=== PATIENT | female | born 1955 | race Caucasian/White ===

== ENCOUNTER 2016-11-03 16:38 | Emergency (ER) | payer MEDICARE ==
[2016-11-03 17:41] LABS: BASOPHILS 0.3 % (0.0-2.0); EOSINOPHILS 0.7 % (0.0-6.0); EOSINOPHILS# 0.1 X 10^3uL (0.0-0.4); HEMATOCRIT 39.8 % (36.0-48.0); HEMOGLOBIN 13.1 g/dL (12.0-16.0); LYMPHOCYTES 12.9 % (20.0-40.0); LYMPHOCYTES# 1.8 X 10^3uL (0.8-3.8); MEAN CELL VOLUME 87.8 fL (80.0-100.0); MEAN CORPUS. HGB CONCENTRATION 32.9 g/dL (32.0-36.0); MEAN CORPUSCULAR HEMOGLOBIN 28.9 pg (29.0-35.0); MONOCYTES 3.5 % (2.0-10.0); MONOCYTES# 0.5 X 10^3uL (0.2-1.0); NEUTROPHILS# 11.6 X 10^3uL (2.6-6.7); PLATELET COUNT 312 X 10^3uL (130-440); RED BLOOD COUNT 4.54 X 10^6uL (4.20-6.10); RED CELL DISTRIBUTION WIDTH 13.2 % (11.5-14.5)
[2016-11-03 17:53] LABS: BLOOD UREA NITROGEN 29 mg/dL (7-17); CALCIUM 9.4 mg/dL (8.4-10.2); CHLORIDE 103 mmol/L (98-107); EST GLOMERULAR FILTRATION RATE 44 mL/min; POTASSIUM 4.8 mmol/L (3.5-5.1); SODIUM 137 mmol/L (137-145)
[2016-11-03 18:01] LABS: NEUTROPHILS 82.6 % (54.0-75.0)
[2016-11-03 18:07] LABS: GLUCOSE 246 mg/dL (70-100); TROPONIN I < 0.012 ng/mL (0.00-0.034)
--- NOTE | 2016-11-03 19:04 | ER NURSING DOCUMENTATION ---
Nurse's Notes [facility] Name:Jeanette Ramirez Age:61 yrs Sex:Female :1955 Arrival Date:11/03/2016 Time:16:38 Bed4 Private MD: Diagnosis:Syncope;Dehydration Presentation: 11/03 16:44 Acuity: JAEL 2 rh 17:12 Presenting complaint: EMS states: up from [place], syncopal episodes x2 while sitting in sj chair so no injuries. Awake and alert now. Transition of care: patient was not received from another setting of care. Notified ED Physician of patient's arrival and CC Dr. Fitzpatrick notified. Care prior to arrival: IV Fluids given by EMS NS 500 ml. 17:12 Method Of Arrival: EMS: 420 sj Triage Assessment: 17:21 General: Appears in no apparent distress, Behavior is cooperative, pleasant. Pain: sj Denies pain. Neuro: No deficits noted. Level of Consciousness is awake, alert, Oriented to person, place, time, Cruise Guide are equal bilaterally Moves all extremities. Gait is unsteady, Speech is normal, Facial symmetry appears normal, Pupils are PERRLA, Reports paresthesias in bilateral feet, now better than usual Denies headache. Cardiovascular: Capillary refill < 3 seconds Heart tones S1 S2 Pulses are all present. Rhythm is regular. Respiratory: Airway is patent Respiratory effort is even, unlabored, Respiratory pattern is regular, symmetrical, Breath sounds are clear bilaterally. Denies shortness of breath. GI: No deficits noted. Bowel sounds present X 4 quads. Abd is soft and non tender X 4 quads. Musculoskeletal: Circulation, motion, and sensation intact Capillary refill < 3 seconds Range of motion intact in all extremities. Historical: - Allergies: No known drug Allergies; - Home Meds: 1. Insulin: Regular Sub-Q 2. Metformin Oral 3. Potassium Chloride Oral 4. Prozac Oral 5. Wellbutrin Oral 6. Aspirin Oral 7. glyburide Oral 8. gabapentin oral 9. hydrochlorothiazide Oral 10. CPAP - PMHx: Diabetes - IDDM; Hypertension; MULTIPLE SCLEROSIS; DEPRESSION; - Tetanus: < 10 years. - Ebola Screening: : Patient negative for fever greater than or equal to 101.5 degrees Fahrenheit, and additional compatible Ebola Virus Disease symptoms. Patient denies exposure to infectious person. Patient denies travel to an Ebola-affected area in the 21 days before illness onset. No symptoms or risks identified at this time. . - Immunization history: Pneumococcal vaccine is not up to date, Patient has never been vaccinated Flu Vaccine < 1 year. - Social history: Smoking status: Patient states was never smoker of tobacco. Patient uses alcohol occasionally. Patient/guardian denies using marijuana. Screenin:40 Infectious Disease Risk None. Abuse screen: Denies threats or abuse. Denies injuries sj from another. Nutritional screening: On diabetic diet. Assessment: 17:39 Neuro: No deficits noted. Cardiovascular: Rhythm is sinus bradycardia RBBB. sj Vital Signs: 16:47 BP 146 / 72; Pulse 95; Resp 22; Temp 97.8(O); Pulse Ox 89% on R/A; Weight 128.82 kg arc (R); Height 5 ft. 1 in. (154.94 cm) (R); Pain 0/10; 18:28 BP 177 / 75; Pulse 86; Resp 25; Pulse Ox 97% on 2 lpm NC; Pain 0/10; sj 19:02 BP 170 / 75; Pulse 80; Resp 18; Temp 98(O); Pulse Ox 94% on R/A; Pain 0/10; bw2 16:47 Body Mass Index 53.66 (128.82 kg, 154.94 cm) arc ED Course: 16:39 Patient arrived in ED. ama 16:44 Triage completed. rh 17:01 Vic Fitzpatrick MD is Attending Physician. tl1 17:05 Judy Thacker is Primary Nurse. sj 17:40 Valuables Given to family. Patient has correct armband on for positive identification. sj Bed in low position. Call light in reach. Side rails up X2. machinist job setter on. Pulse ox on. NIBP on. Warm blanket given. Administered Medications: 17:12 Drug: NS 0.9% 1000 ml; Route: IV; Rate: bolus; Site: left hand; sj 18:37 Follow up: IV Status: Completed infusion; IV Intake: 1000ml sj Point of Care Testing: Blood Glucose: 17:23 Blood Glucose: 225 mg/dL; Test Strip: Lot #: [id number]; Expiration: 03/19/2018; sj Ranges: Intake: 18:37 IV: 1000ml; Total: 1000ml. sj Outcome: 18:55 Discharge ordered by MD. tl1 19:02 Discharged to home ambulatory. bw2 19:02 Condition: good 19:02 Discharge Assessment: Patient awake, alert and oriented x 3. No cognitive and/or functional deficits noted. Patient verbalized understanding of disposition instructions. 19:02 Discharge instructions given to patient, Instructed on discharge instructions, Demonstrated understanding of instructions. 19:03 Patient left the ED. bw2 Signatures: Christophe Reyes, Reg Reg Vic Martinez MD MD tl1 Marisela Hunter, Reg Reg Jenifer Chow, Kassidy Merino bw2
--- NOTE | 2016-11-05 19:03 | ER PHYSICIAN DOCUMENTATION ---
Physician Documentation [facility] Name:Jeanette Ramirez Age:61 yrs Sex:Female :1955 Arrival Date:11/03/2016 Time:16:38 Bed4 Private MD: Vic Brown Disposition: 11/03 23:29 Chart complete. tl1 Disposition: 11/03/16 18:55 Discharged to Home/Self Care. Impression: Syncope, Dehydration. - Condition is Good. - Discharge Instructions: DEHYDRATION (4y-Adult), SYNCOPE, Vasovagal. - Medical Reconciliation form form. - Follow up: Private Physician; When: 7 - 10 days; Reason: Recheck today's complaints, Continuance of care. - Problem is new. - Symptoms have improved. HPI: 16:42 This 61 yrs old Female presents to ER via EMS with complaints of Syncope. tl1 17:00 The patient has experienced syncope, became unresponsive. Duration: This was a single tl1 episode, that lasted 60 second(s). Context: the episode(s) was witnessed, by a friend, occurred [facility] [address] [facility] at [address],000' in [facility], occurred while the patient was walking, Just prior to the episode the patient experienced lightheadedness. Associated injury: The patient did not suffer any apparent associated injury. Associated signs and symptoms: The patient has no apparent associated signs or symptoms. Historical: - Allergies: No known drug Allergies; - Home Meds: 1. Insulin: Regular Sub-Q 2. Metformin Oral 3. Potassium Chloride Oral 4. Prozac Oral 5. Wellbutrin Oral 6. Aspirin Oral 7. glyburide Oral 8. gabapentin oral 9. hydrochlorothiazide Oral 10. CPAP - PMHx: Diabetes - IDDM; Hypertension; MULTIPLE SCLEROSIS; DEPRESSION; - Tetanus: < 10 years. - Ebola Screening: : Patient negative for fever greater than or equal to 101.5 degrees Fahrenheit, and additional compatible Ebola Virus Disease symptoms. Patient denies exposure to infectious person. Patient denies travel to an Ebola-affected area in the 21 days before illness onset. No symptoms or risks identified at this time. . - Immunization history: Pneumococcal vaccine is not up to date, Patient has never been vaccinated Flu Vaccine < 1 year. - Social history: Smoking status: Patient states was never smoker of tobacco. Patient uses alcohol occasionally. Patient/guardian denies using marijuana. ROS: 17:00 Cardiovascular: Negative for chest pain, palpitations. tl1 17:00 Respiratory: Negative for cough, dyspnea on exertion, orthopnea, pleurisy, shortness of breath, sputum production, wheezing. 17:00 Abdomen/GI: Negative for abdominal pain, nausea, vomiting, diarrhea, abdominal cramps, abdominal distension. 17:00 : Negative for urinary symptoms. 17:00 Neuro: Negative for headache, seizure activity, speech changes, visual changes. 17:00 All other systems are negative. Exam: 17:00 Abdomen/GI: Exam negative for acute changes, Bowel sounds: normal, Palpation: abdomen tl1 is soft and non-tender. 17:00 Constitutional: This is a well developed, well nourished patient who is awake, alert, tl1 and in no acute distress. Head/Face: Normocephalic, atraumatic. Eyes: Pupils equal round and reactive to light, extra-ocular motions intact. Lids and lashes normal. Conjunctiva and sclera are non-icteric and not injected. Cornea within normal limits. Periorbital areas with no swelling, redness, or edema. Neck: Trachea midline, no thyromegaly or masses palpated, and no cervical lymphadenopathy. Supple, full range of motion without nuchal rigidity, or vertebral point tenderness. No Meningismus. 17:00 Chest/axilla: Normal chest wall appearance and motion. Nontender with no deformity. No lesions are appreciated. 17:00 Constitutional: The patient appears obese. 17:00 Cardiovascular: Rate: normal, Rhythm: regular, Heart sounds: normal, Edema: is not appreciated. 17:00 Respiratory: Respirations: normal, Breath sounds: are normal. 17:00 Neuro: Exam negative for acute changes, Orientation: is normal, Mentation: is normal, Memory: is normal, Cranial nerves: grossly normal, Motor: moves all fours. Vital Signs: 16:47 BP 146 / 72; Pulse 95; Resp 22; Temp 97.8(O); Pulse Ox 89% on R/A; Weight 128.82 kg arc (R); Height 5 ft. 1 in. (154.94 cm) (R); Pain 0/10; 18:28 BP 177 / 75; Pulse 86; Resp 25; Pulse Ox 97% on 2 lpm NC; Pain 0/10; sj 19:02 BP 170 / 75; Pulse 80; Resp 18; Temp 98(O); Pulse Ox 94% on R/A; Pain 0/10; bw2 16:47 Body Mass Index 53.66 (128.82 kg, 154.94 cm) arc MDM: 16:40 Patient medically screened. tl1 16:58 Response to treatment: the patient's symptoms have markedly improved after treatment, tl1 and as a result, I will discharge patient. ED course: This is probably multifactorial with dehydration and probable Vasovagal episode. She does have a bifascicular block and if she had a transient LPFB, could have had complete heart block and syncope based on that. She was hydrated, and felt much better at the time of d/c.. 17:00 Differential Diagnosis: cardiac arrhythmia, emotional response, idiopathic syncope, tl1 vasovagal episode, DEHYDRATION. Neurological re-evaluation: normal neurological exam including cranial nerves, orientation, mentation, motor and sensory exam, cerebellar testing, GCS normal, and normal gait. Data reviewed: vital signs, nurses notes, lab test result(s), EKG, radiologic studies, and as a result, I will. ECG:. 11/03 18:02 Order name: CBC AUTO DIF, MDIF/RMOR IF IND; Complete Time: 18:57 EDMS 11/03 18:56 Interpretation: WHITE BLOOD COUNT 14.0; HEMOGLOBIN 13.1; HEMATOCRIT 39.8; PLATELET tl1 COUNT 312; NEUTROPHILS 82.6; LYMPHOCYTES 12.9. 11/03 18:08 Order name: BASIC METABOLIC PANEL; Complete Time: 18:57 EDMS 11/03 18:56 Interpretation: SODIUM 137; POTASSIUM 4.8; CHLORIDE 103; CARBON DIOXIDE 23; GLUCOSE tl1 246; BLOOD UREA NITROGEN 29; CREATININE 1.3; EST GLOMERULAR FILTRATION RATE 44. 11/03 18:08 Order name: TROPONIN I; Complete Time: 18:57 EDMS 11/03 18:56 Interpretation: Normal: TROPONIN I < 0.012. tl1 11/03 17:02 Order name: 12-lead EKG; Complete Time: 17:12 tl1 11/03 17:02 Order name: Continuous Cardiac Monitoring; Complete Time: 17:12 tl1 11/03 17:02 Order name: I & O; Complete Time: 17:05 tl1 11/03 17:02 Order name: NPO; Complete Time: 17:05 tl1 11/03 17:02 Order name: Oxygen; Complete Time: 17:05 tl1 11/03 17:02 Order name: Pulse Ox Continuous; Complete Time: 17:05 tl1 06 17:02 Order name: Accucheck; Complete Time: 18:36 tl1 EC:58 Rate is 83 beats/min. Rhythm is regular, Normal Sinus Rhythm. QRS [place] is Normal. IN tl1 interval is normal at 171 msec. QRS interval is prolonged at 127 msec. QT interval is prolonged at 505 msec. Q waves are Present in lead aVR. T waves are Normal. No ST changes noted. 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 Interpreted by me. Reviewed by me. Dispensed Medications: 17:12 Drug: NS 0.9% 1000 ml; Route: IV; Rate: bolus; Site: left hand; 18:37 Follow up: IV Status: Completed infusion; IV Intake: 1000ml Point of Care Testing: Blood Glucose: 17:23 Blood Glucose: 225 mg/dL; Test Strip: Lot #: [id number]; Expiration: 03/19/2018; Ranges: Critical Glucose Levels:Adult <50 mg/dl or >400 mg/dl <40 mg/dl or >180 mg/dl Signatures: Vic Fitzpatrick MD MD 1 Judy Thacker [facility]
== END 2016-11-03 19:04 | disposition home or self-care (01) ==
LOC: ER 16:38
DX: R55 Syncope and collapse (principal); E86.0 Dehydration; I45.10 Unspecified right bundle-branch block; I44.4 Left anterior fascicular block; E11.9 Type 2 diabetes mellitus without complications; I10 Essential (primary) hypertension; G35 Multiple sclerosis; Z79.899 Other long term (current) drug therapy; Z79.82 Long term (current) use of aspirin
CPT/HCPCS: 80048; 84484; 85025; 93005; 96360; 99284; A0425; A0426